=== PATIENT | male | born 1980 | race Caucasian/White ===

== ENCOUNTER 2018-10-15 12:34 | Emergency (ER) | payer OTHER ==
[2018-10-15 12:38] VITALS: TEMP 97.8
[2018-10-15] MEDS ORDERED: SODIUM CHLORIDE 0.9% 1,000 ML IV ONE (12:58)
--- NOTE | 2018-10-15 13:04 | ED ---
General Adult HPI - General Chief complaint: Dizziness Stated complaint: hypertension, low pulse Time Seen by Provider: 10/15/18 12:35 Source: patient, RN notes reviewed Mode of arrival: ambulatory Limitations: no limitations - History of Present Illness Initial comments: This is a 37-year-old male who presents emergency Department complaining of having had a syncopal episode on . Patient states he went to his primary medical care doctor's office and they told to come the emergency department because his heart rate was slow on an EKG and his blood pressure is high. Patient states the symptoms of lightheadedness and passing out or been on going for about 5 years he's passed out a total of 4-5 times. Patient states he's never followed up except for his initial visit to an emergency department 5 years ago. Patient states she can feel lightheaded prior to passing out but denies chest pain palpitations shortness of breath or difficulty breathing. Patient denies any recent fever chills or cough. Patient also complains of severe fatigue which has gotten considerably worse over the last 2 weeks such that is missing quite a few days at work. Patient denies any headache patient denies any numbness or focal weakness. Patient denies any abdominal pain patient denies nausea vomiting diarrhea. Patient states anytime he stands up he feels extremely lightheaded. - Related Data Home Medications Medication Instructions Recorded Confirmed Amoxic-Pot Clav 875-125Mg 1 tab PO Q12H 10/15/18 10/15/18 [Augmentin 875-125] Cyanocobalamin (Vitamin B-12) 2,500 mcg PO DAILY 10/15/18 10/15/18 [Vitamin B-12] Famotidine [Pepcid] 20 mg PO DAILY 10/15/18 10/15/18 Fluticasone Nasal [place] [Flonase 2 sprays EA NOSTRIL DAILY 10/15/18 10/15/18 Nasal [place]] Loratadine [Claritin] 10 mg PO DAILY 10/15/18 10/15/18 Meclizine [Antivert] 25 mg PO DIRECTED 10/15/18 10/15/18 Allergies Allergy/AdvReac Type Severity Reaction Status Date / Time banana [Banana] Allergy Anaphylaxis Verified 10/15/18 12:50 iodine Allergy Rash/Hives Verified 10/15/18 12:50 STEROID AdvReac Confusion Uncoded 10/15/18 12:50 Review of Systems ROS Statement: Those systems with pertinent positive or pertinent negative responses have been documented in the HPI. ROS Other: All systems not noted in ROS Statement are negative. Past Medical History Past Medical History: No Reported History Additional Past Medical History / Comment(s): vertigo History of Any Multi-Drug Resistant Organisms: None Reported Past Surgical History: Orthopedic Surgery Additional Past Surgical History / Comment(s): reconstruction on bilateral biceps, left ACL Past Psychological History: ADD/ADHD, Depression Smoking Status: Current every day smoker Past Alcohol Use History: None Reported Past Drug Use History: Marijuana General Exam - General Exam Comments Initial Comments: GENERAL: Patient is well-developed and well-nourished. Patient is nontoxic and well- hydrated and is in mild distress. ENT: Neck is soft and supple. No significant lymphadenopathy is noted. Oropharynx is clear. Moist mucous membranes. Neck has full range of motion without eliciting any pain. EYES: The sclera were anicteric and conjunctiva were pink and moist. Extraocular movements were intact and pupils were equal round and reactive to light. Eyelids were unremarkable. PULMONARY: Unlabored respirations. Good breath sounds bilaterally. No audible rales rhonchi or wheezing was noted. CARDIOVASCULAR: There is a regular rate and rhythm without any murmurs gallops or rubs. ABDOMEN: Soft and nontender with normal bowel sounds. No palpable organomegaly was noted. There is no palpable pulsatile mass. SKIN: Skin is clear with no lesions or rashes and otherwise unremarkable. NEUROLOGIC: Patient is alert and oriented x3. Cranial nerves II through XII are grossly intact. Motor and sensory are also intact. Normal speech, volume and content. Symmetrical smile. MUSCULOSKELETAL: Normal extremities with adequate strength and full range of motion. No lower extremity swelling or edema. No calf tenderness. LYMPHATICS: No significant lymphadenopathy is noted PSYCHIATRIC: Normal psychiatric evaluation. Limitations: no limitations Course Vital Signs 10/15/18 10/15/18 10/15/18 12:35 13:17 14:47 Temperature 97.8 F Pulse Rate 67 51 L Pulse Rate [ 77 Feather Mixer ] Respiratory 18 16 16 Rate Blood Pressure 152/94 136/93 Blood Pressure 133/100 [Prone] Blood Pressure 143/101 [Sitting] Blood Pressure 139/98 [Standing] O2 Sat by Pulse 99 98 Oximetry Medical Decision Making - Medical Decision Making EKG shows normal sinus rhythm at 61 bpm LA interval is 146 dresses 92 QT interval 382 QTC is 384. Patient's EKG shows no ST segment elevation or depression or T wave abnormalities are noted. Patient had no symptoms while in the emergency department. Patient was not orthostatic in the emergency department. Patient agreed to follow up with his primary medical care doctor. - Lab Data Result diagrams: 10/15/18 13:10 10/15/18 13:10 Lab Results 10/15/18 10/15/18 10/15/18 Range/Units 13:10 13:10 13:10 WBC 4.7 (3.8-10.6) k/uL RBC 4.90 (4.30-5.90) m/uL Hgb 14.5 (13.0-17.5) gm/dL Hct 42.2 (39.0-53.0) % MCV 86.1 (80.0-100.0) fL MCH 29.7 (25.0-35.0) pg MCHC 34.5 (31.0-37.0) g/dL RDW 13.0 (11.5-15.5) % Plt Count 230 (150-450) k/uL Neutrophils % 58 % Lymphocytes % 25 % Monocytes % 5 % Eosinophils % 7 % Basophils % 1 % Neutrophils # 2.7 (1.3-7.7) k/uL Lymphocytes # 1.2 (1.0-4.8) k/uL Monocytes # 0.2 (0-1.0) k/uL Eosinophils # 0.3 (0-0.7) k/uL Basophils # 0.1 (0-0.2) k/uL PT 10.1 (9.0-12.0) sec INR 0.9 (<1.2) APTT 23.8 (22.0-30.0) sec Sodium 143 (137-145) mmol/L Potassium 4.6 (3.5-5.1) mmol/L Chloride 107 (98-107) mmol/L Carbon Dioxide 27 (22-30) mmol/L Anion Gap 9 mmol/L BUN 15 (9-20) mg/dL Creatinine 0.90 (0.66-1.25) mg/dL Est GFR (CKD-EPI)AfAm >90 (>60 ml/min/1.73 sqM) Est GFR (CKD-EPI)NonAf >90 (>60 ml/min/1.73 sqM) Glucose 83 (74-99) mg/dL Calcium 9.1 (8.4-10.2) mg/dL Magnesium 1.9 (1.6-2.3) mg/dL Total Bilirubin 0.4 (0.2-1.3) mg/dL AST 25 (17-59) U/L ALT 42 (21-72) U/L Alkaline Phosphatase 41 (38-126) U/L Troponin I (0.000-0.034) ng/mL Total Protein 7.3 (6.3-8.2) g/dL Albumin 4.3 (3.5-5.0) g/dL TSH 1.290 (0.465-4.680) mIU/L Free T4 0.87 (0.78-2.19) ng/dL Urine Opiates Screen (NotDetected) Ur Oxycodone Screen (NotDetected) Urine Methadone Screen (NotDetected) Ur Propoxyphene Screen (NotDetected) Ur Barbiturates Screen (NotDetected) U Tricyclic Antidepress (NotDetected) Ur Phencyclidine Scrn (NotDetected) Ur Amphetamines Screen (NotDetected) U Methamphetamines Scrn (NotDetected) U Benzodiazepines Scrn (NotDetected) Urine Cocaine Screen (NotDetected) U Marijuana (THC) Screen (NotDetected) 10/15/18 10/15/18 Range/Units 13:10 14:22 WBC (3.8-10.6) k/uL RBC (4.30-5.90) m/uL Hgb (13.0-17.5) gm/dL Hct (39.0-53.0) % MCV (80.0-100.0) fL MCH (25.0-35.0) pg MCHC (31.0-37.0) g/dL RDW (11.5-15.5) % Plt Count (150-450) k/uL Neutrophils % % Lymphocytes % % Monocytes % % Eosinophils % % Basophils % % Neutrophils # (1.3-7.7) k/uL Lymphocytes # (1.0-4.8) k/uL Monocytes # (0-1.0) k/uL Eosinophils # (0-0.7) k/uL Basophils # (0-0.2) k/uL PT (9.0-12.0) sec INR (<1.2) APTT (22.0-30.0) sec Sodium (137-145) mmol/L Potassium (3.5-5.1) mmol/L Chloride (98-107) mmol/L Carbon Dioxide (22-30) mmol/L Anion Gap mmol/L BUN (9-20) mg/dL Creatinine (0.66-1.25) mg/dL Est GFR (CKD-EPI)AfAm (>60 ml/min/1.73 sqM) Est GFR (CKD-EPI)NonAf (>60 ml/min/1.73 sqM) Glucose (74-99) mg/dL Calcium (8.4-10.2) mg/dL Magnesium (1.6-2.3) mg/dL Total Bilirubin (0.2-1.3) mg/dL AST (17-59) U/L ALT (21-72) U/L Alkaline Phosphatase (38-126) U/L Troponin I <0.012 (0.000-0.034) ng/mL Total Protein (6.3-8.2) g/dL Albumin (3.5-5.0) g/dL TSH (0.465-4.680) mIU/L Free T4 (0.78-2.19) ng/dL Urine Opiates Screen Not Detected (NotDetected) Ur Oxycodone Screen Not Detected (NotDetected) Urine Methadone Screen Not Detected (NotDetected) Ur Propoxyphene Screen Not Detected (NotDetected) Ur Barbiturates Screen Not Detected (NotDetected) U Tricyclic Antidepress Not Detected (NotDetected) Ur Phencyclidine Scrn Not Detected (NotDetected) Ur Amphetamines Screen Not Detected (NotDetected) U Methamphetamines Scrn Not Detected (NotDetected) U Benzodiazepines Scrn Not Detected (NotDetected) Urine Cocaine Screen Not Detected (NotDetected) U Marijuana (THC) Screen Detected H (NotDetected) Disposition Clinical Impression: Syncope Disposition: HOME SELF-CARE Condition: Good Instructions (If sedation given, give patient instructions): Syncope (ED) Additional Instructions: Patient should follow-up with his primary medical care doctor as well as cardiology. Is patient prescribed a controlled substance at d/c from ED?: No Referrals: Jas Marshall DO [Primary Care Provider] - 1-2 days Time of Disposition: 15:09
[2018-10-15 13:19] VITALS: RESP 16
[2018-10-15 13:38] LABS: Basophils # (A) 0.1 k/uL (0-0.2); Basophils % (A) 1 %; Eosinophils # (A) 0.3 k/uL (0-0.7); Eosinophils % (A) 7 %; HCT 42.2 % (39.0-53.0); HGB 14.5 gm/dL (13.0-17.5); Lymphocytes # (A) 1.2 k/uL (1.0-4.8); Lymphocytes % (A) 25 %; MCH 29.7 pg (25.0-35.0); MCHC 34.5 g/dL (31.0-37.0); MCV 86.1 fL (80.0-100.0); Mean Platelet Volume 6.8; Monocytes # (A) 0.2 k/uL (0-1.0); Monocytes % (A) 5 %; Neutrophils # (A) 2.7 k/uL (1.3-7.7); Neutrophils % (A) 58 %; Platelet Count 230 k/uL (150-450); WBC 4.7 k/uL (3.8-10.6)
--- NOTE | 2018-10-15 13:41 | XR ---
EXAMINATION TYPE: XR chest 2V DATE OF EXAM: 10/15/2018 COMPARISON: 11/12/2013 INDICATION: Pain TECHNIQUE: Frontal and lateral views of the chest are obtained. FINDINGS: The heart size is normal. The pulmonary vasculature is normal. The lungs are clear. IMPRESSION: 1. No acute pulmonary process.
[2018-10-15 13:47] LABS: INR 0.9 (<1.2); Partial Thromboplastin Time 23.8 sec (22.0-30.0); Prothrombin Time 10.1 sec (9.0-12.0)
[2018-10-15 13:48] LABS: ALT 42 U/L (21-72); AST 25 U/L (17-59); African American GFR (CKD) >90 (>60 ml/min/1.73 sqM); Albumin 4.3 g/dL (3.5-5.0); Alkaline Phosphatase 41 U/L (38-126); Anion Gap 9 mmol/L; Blood Urea Nitrogen 15 mg/dL (9-20); Calcium 9.1 mg/dL (8.4-10.2); Carbon Dioxide 27 mmol/L (22-30); Chloride 107 mmol/L (98-107); Glucose 83 mg/dL (74-99); Magnesium 1.9 mg/dL (1.6-2.3); Potassium 4.6 mmol/L (3.5-5.1); Sodium 143 mmol/L (137-145); Total Bilirubin 0.4 mg/dL (0.2-1.3); Total Protein 7.3 g/dL (6.3-8.2)
[2018-10-15 14:05] LABS: T4, Free (Free Thyroxine) 0.87 ng/dL (0.78-2.19)
[2018-10-15 14:47] LABS: Amphetamine Screen,Urine Not Detected (NotDetected); Barbiturate Screen,Urine Not Detected (NotDetected); Benzodiazepines Screen,Urine Not Detected (NotDetected); Cocaine Screen,Urine Not Detected (NotDetected); Methadone Screen, Urine Not Detected (NotDetected); Opiate Screen,Urine Not Detected (NotDetected); Oxycodone Screen, Urine Not Detected (NotDetected); Phencyclidine Screen,Urine Not Detected (NotDetected); Tricyclic Antidepressant,Urine Not Detected (NotDetected); Urn Cannabinoid Scrn Detected (NotDetected)
[2018-10-15 14:48] VITALS: BP 136/93; PULSE 51
== END 2018-10-15 15:37 | disposition home or self-care (01) ==
LOC: EC 12:34
DX: R55 Syncope and collapse (principal); R42 Dizziness and giddiness; F17.200 Nicotine dependence, unspecified, uncomplicated; Z79.899 Other long term (current) drug therapy; Z91.048 Other nonmedicinal substance allergy status; Z88.8 Allergy status to other drugs, medicaments and biological substances; Z91.018 Allergy to other foods
CPT/HCPCS: 36415; 71046; 80053; 80306; 83735; 84439; 84443; 84484; 85025; 85610; 85730; 93005; 96360; 99284

== ENCOUNTER → 2019-01-06 | Outpatient (CLI) | payer OTHER ==
--- NOTE | 2019-01-06 11:32 | US ---
EXAMINATION TYPE: US abdomen limited DATE OF EXAM: 01/06/2019 COMPARISON: NONE CLINICAL HISTORY: Epigastric Pain R10.13. Generalized abdominal pain, nausea, diarrhea, dizziness EXAM MEASUREMENTS: Liver Length: 14.5 cm Gallbladder Wall: 0.2 cm CBD: 0.4 cm Right Kidney: 11.2 x 5.4 x 4.4 cm Pancreas: wnl Liver: mildly hyperechoic mid right lobe Gallbladder: wnl Evidence for sonographic Cyr's sign: no CBD: wnl Right Kidney: wnl Visualized pancreas is unremarkable. Visualized liver is slightly heterogeneous without mass or ducta l dilatation. Gallbladder within normal limits. No gross hydronephrosis in right kidney. IMPRESSION: No shadowing mobile gallstones or ultrasound evidence for acute cholecystitis.
== END | disposition home or self-care (01) ==
LOC: RADUSWWP 09:33
PROVIDERS: ATTEND Internal Medicine Gastroenterology
DX: R10.13 Epigastric pain (principal)
CPT/HCPCS: 76705

== ENCOUNTER 2019-01-12 13:36 | Day surgery (SDC) | payer OTHER ==
[2019-01-10 15:58] VITALS: BMI 29.0
[~2019-01-12 13:36] MED LIST: LACTATED RINGERS 1,000 ML IV SCH
[2019-01-12] MEDS ORDERED: LIDOCAINE 1% 20 ML VIAL (10MG/ML) FOR IV START INTRADERMA ONE (14:00)
[2019-01-12 14:01] VITALS: RESP 16; TEMP 98.7
[2019-01-12] MEDS ORDERED: ONDANSETRON 4 MG/2 ML VIAL ONE (14:42)
[2019-01-12] MEDS ORDERED: PROPOFOL 10 MG/ML 20 ML VIAL IV ONE (14:42)
[2019-01-12] MEDS ORDERED: fentaNYL (PF) 50 MCG/ML 2 ML AMP ONE (14:42)
[2019-01-12] MEDS ORDERED: LIDOCAINE 1% INJ 10MG/ML (20 ML MDV) ONE (14:42)
[2019-01-12] MEDS ORDERED: IV FLUID CONTINUATION 1,000 ML IV ONE (15:21)
--- NOTE | 2019-01-12 15:29 | P.PCN ---
Date of Procedure: 01/12/19 Description of Procedure: Brief history: Patient is a pleasant scheduled for an elective upper endoscopy as well as colonoscopy as a part of evaluation of evaluation of epigastric abdominal pain and change in bowel habits. Patient has long-standing history of GERD type symptoms currently on Protonix daily. He also has diffuse generalized abdominal pain in the lower abdomen with chronic loose bowel movements. Procedure performed: Esophagogastroduodenoscopy with biopsy Colonoscopy with biopsy Estimated blood loss: Minimal. Preoperative diagnosis: Epigastric abdominal pain, change in bowel habits Anesthesia: MAC Procedure: After informed consent was obtained from the patient was brought into the endoscopy unit and IV sedation was administered by anesthesia under continuous monitoring. Initially upper endoscopy was done. The Olympus GF 190 video endoscope was inserted into the mouth and esophagus intubated without any difficulty and was gradually advanced into the stomach and duodenum and carefully examined. The bulb and second part of the duodenum appeared normal, with biopsies taken to rule out celiac sprue. The scope was then withdrawn into the stomach adequately insufflated with air and upon careful examination the antrum and body, cardia and fundus appeared normal, except for some mild scattered erythema in the antrum and body suggestive of mild gastritis with biopsies taken to rule out Helicobacter pylori infection. The scope was then withdrawn into the esophagus. The GE junction was located at 38 cm to the incisors, with biopsies taken to rule out evidence of reflux esophagitis. It appeared regular with no erythema erosions or ulcerations. Rest of the esophagus appeared normal. Patient tolerated the procedure well. At this time the patient continued to remain sedation. Initial digital rectal examination was normal. Olympus CF 190 video colonoscope was then inserted into the rectum and gradually advanced to the cecum without any difficulty. Careful examination was performed as the scope was gradually being withdrawn. The prep was excellent. The cecum, ascending colon, transverse colon, descending colon, sigmoid colon and rectum appeared normal, with biopsies of the right and left colon taken due to altered bowel function. Terminal ileum was also intubated and appeared normal with biopsies taken due to altered bowel function. Retroflexion was performed in the rectum and no lesions were noted. Patient tolerated the procedure well. Impression: 1. Mild gastritis antrum and body biopsied. Biopsies of the GE junction and duodenum. 2. Normal-appearing colon from rectum to cecum with normal-appearing terminal ileum and biopsies taken of the right colon, left colon and terminal ileum due to altered bowel function. Recommendations: Findings of this examination were discussed with the patient as well as his fa anmol. Okay to resume diet. Okay to resume medications. Follow-up in gastroenterology clinic as scheduled for results of biopsy results.
[2019-01-12 15:38] VITALS: BP 113/72; PULSE 71
== END 2019-01-12 15:54 | disposition home or self-care (01) ==
LOC: ORWHC2ENDO 13:36
PROVIDERS: ATTEND Internal Medicine
DX: K29.50 Unspecified chronic gastritis without bleeding (principal); K21.0 Gastro-esophageal reflux disease with esophagitis; R19.4 Change in bowel habit; Z87.891 Personal history of nicotine dependence; Z91.018 Allergy to other foods; Z91.048 Other nonmedicinal substance allergy status; Z88.8 Allergy status to other drugs, medicaments and biological substances; Z79.899 Other long term (current) drug therapy; Z79.1 Long term (current) use of non-steroidal anti-inflammatories (NSAID); Z98.890 Other specified postprocedural states
CPT/HCPCS: 88305; 45380; 43239; J2405; J2001; J3010; J2704

== ENCOUNTER → 2020-07-23 | Outpatient (CLI) | payer OTHER ==
--- NOTE | 2020-07-23 16:42 | XR ---
EXAMINATION TYPE: XR toes RT DATE OF EXAM: 07/23/2020 COMPARISON: NONE HISTORY: Pain TECHNIQUE: 2 view submitted FINDINGS: There is no oblique fracture through the midshaft proximal phalanx second digit. Remaining osseous structures intact. IMPRESSION: Oblique fracture mildly displaced proximal phalanx second digit.
== END | disposition home or self-care (01) ==
LOC: RADXRYALE 15:20
PROVIDERS: ATTEND Physician Assistant
DX: S62.616A Displaced fracture of proximal phalanx of right little finger, initial encounter for closed fracture (principal)

== ENCOUNTER → 2020-11-05 | Outpatient (CLI) | payer OTHER ==
--- NOTE | 2020-11-05 11:09 | XR ---
Left humerus HISTORY: Left upper arm pain 2 views left humerus There are ossific densities present at the level of the proximal radius, some osteoarthritic changes are present within the left elbow, there may be synovial osteochondromatosis or heterotopic new bone formation, suspect there changes of biceps tendon repair, metallic clip present at the level of the r adial tuberosity with an associated lucency. There is some focal soft tissue swelling suspected. No a cute fracture or dislocation. IMPRESSION: Correlate for possible biceps tendon rupture, MRI may be of benefit.
== END | disposition home or self-care (01) ==
LOC: RADXRYALE 08:36
PROVIDERS: ATTEND Family Medicine
DX: M79.622 Pain in left upper arm (principal)

== ENCOUNTER 2020-11-14 15:20 | Observation (INO) | payer OTHER ==
[2020-11-14] MEDS ORDERED: AMPICILLIN-SULBACTAM 3 GM in SODIUM CHLORIDE 0.9% 100 ML IVPB STA (15:40)
[2020-11-14 16:29] LABS: Basophils % (A) 0 %; Eosinophils % (A) 0 %; HCT 39.6 % (39.0-53.0); HGB 13.3 gm/dL (13.0-17.5); Lymphocytes # (A) 2.2 k/uL (1.0-4.8); Lymphocytes % (A) 25 %; MCH 30.3 pg (25.0-35.0); MCHC 33.6 g/dL (31.0-37.0); MCV 90.2 fL (80.0-100.0); Mean Platelet Volume 7.5; Monocytes # (A) 0.5 k/uL (0-1.0); Monocytes % (A) 6 %; Neutrophils # (A) 5.6 k/uL (1.3-7.7); Neutrophils % (A) 65 %; Platelet Count 282 k/uL (150-450); RDW 12.9 % (11.5-15.5); WBC 8.6 k/uL (3.8-10.6)
[2020-11-14] MEDS ORDERED: NALOXONE 0.4 MG/ML 1 ML VIAL IV PRN (16:31)
--- NOTE | 2020-11-14 16:32 | ED ---
Skin/Abscess/FB HPI - General Chief complaint: Skin/Abscess/Foreign Body Stated complaint: multiple arm masses & arm swelling Source: patient, family Mode of arrival: ambulatory - History of Present Illness Initial comments: Sam a 9-year-old male presents the emergency department today from Dr. Zhu's office for evaluation of swelling in the left arm. Patient was seen last week and placed on oral antibiotics he's been compliant with his 4 times daily Keflex. Despite compliance with this he's developed worsening swelling and tender lymphadenopathy in the left axilla. Patient was again seen in the office today and advised him to the hospital for ultrasound blood cultures and IV antibiotics. Patient denies any fevers chills nausea or vomiting. He states he doesn't feel good in the arm is quite painful. Of note the patient does own a cat but does not believe it has bitten or scratched him recently. - Related Data Home Medications Medication Instructions Recorded Confirmed Montelukast [Singulair] 10 mg PO HS 01/10/19 11/14/20 Omeprazole 40 mg PO DAILY 01/10/19 11/14/20 Acetaminophen [Tylenol Extra 500 mg PO Q8H PRN 11/14/20 11/14/20 Strength] Albuterol Sulfate [Proair Hfa] 2 puff INHALATION RT-Q6H PRN 11/14/20 11/14/20 Benralizumab [Fasenra] 30 mg SQ Q56D 11/14/20 11/14/20 Cephalexin [Keflex] 500 mg PO TID 11/14/20 11/14/20 Citalopram Hydrobromide [CeleXA] 20 mg PO DAILY 11/14/20 11/14/20 Divalproex ER [Depakote ER] 500 mg PO HS 11/14/20 11/14/20 Fexofenadine HCl [Alysha Allergy] 180 mg PO DAILY 11/14/20 11/14/20 Fluticasone Nasal [place] [Flonase 1 spray EA NOSTRIL DAILY PRN 11/14/20 11/14/20 Nasal [place]] Fluticasone Propionate [Flovent 2 puff INHALATION RT-BID 11/14/20 11/14/20 Hfa 220 mcg] Ipratropium [place] [Ipratropium 1 spray EA NOSTRIL DAILY 11/14/20 11/14/20 [place] 0.03%] Ketorolac [Toradol] 10 mg PO BID PRN 11/14/20 11/14/20 QUEtiapine FUMARATE [SEROquel XR] 50 mg PO DAILY 11/14/20 11/14/20 QUEtiapine FUMARATE [SEROquel XR] 400 mg PO HS 11/14/20 11/14/20 diphenhydrAMINE HCL [Benadryl] 50 mg PO HS 11/14/20 11/14/20 Allergies Allergy/AdvReac Type Severity Reaction Status Date / Time banana [Banana] Allergy Anaphylaxis Verified 11/14/20 17:12 ibuprofen Allergy Unknown Verified 11/14/20 17:12 iodine Allergy Rash/Hives Verified 11/14/20 17:12 walnut Allergy shallow Verified 11/14/20 17:12 breathing and itching throat STEROID AdvReac swelling,an Uncoded 11/14/20 17:12 michael,itching ,nausea Review of Systems ROS Statement: Those systems with pertinent positive or pertinent negative responses have been documented in the HPI. ROS Other: All systems not noted in ROS Statement are negative. Past Medical History Past Medical History: GERD/Reflux, Hypertension Additional Past Medical History / Comment(s): vertigo, migraines, current sinus infection and on rx, had abnormal EEG, occ irregular heat beat, irregular bowel movements, abdominal pain and cramping, History of Any Multi-Drug Resistant Organisms: None Reported Past Surgical History: Heart Catheterization, Orthopedic Surgery Additional Past Surgical History / Comment(s): reconstruction on bilateral biceps, left knee ACL Past Anesthesia/Blood Transfusion Reactions: Unable to Obtain, Motion Sickness Additional Past Anesthesia/Blood Transfusion Reaction / Comment(s): unknown family hx- adopted Past Psychological History: Anxiety Smoking Status: Never smoker Past Alcohol Use History: None Reported Past Drug Use History: Marijuana - Past Family History Mother Family Medical History: Unable to Obtain Additional Family Medical History / Comment(s): obtained General Exam - General Exam Comments Initial Comments: Physical Exam GENERAL: Patient is well-developed and well-nourished. Patient is nontoxic and well-hydrated and is in no distress. HENT: Normocephalic, Atraumatic. EYES: PERRL, EOMI PULMONARY: Unlabored respirations. CARDIOVASCULAR: RRR Warm and well perfused extremities ABDOMEN: Non-distended SKIN: Swollen area distal left bicep, no fluctuate Tender lymphadenopathy in left axilla : Deferred NEUROLOGIC: Alert and oriented Normal speech Normal gait MUSCULOSKELETAL: Moving all extremities with no apparent injury PSYCHIATRIC: No SI/HI Course Vital Signs 11/14/20 11/14/20 15:21 22:46 Temperature 98.5 F Pulse Rate 78 72 Respiratory 19 18 Rate Blood Pressure 178/106 137/88 O2 Sat by Pulse 97 95 Oximetry Medical Decision Making - Medical Decision Making Pt care discussed with Audra Labs and IV abx ordered Patient care discussed with Luisa RUST who accepts admission to [facility] Ultrasound no signs of abscess, lymphadenopathy noted - Lab Data Result diagrams: 11/14/20 16:17 11/14/20 16:17 Lab Results 11/14/20 11/14/20 11/14/20 Range/Units 16:17 16:17 16:30 WBC 8.6 (3.8-10.6) k/uL RBC 4.40 (4.30-5.90) m/uL Hgb 13.3 (13.0-17.5) gm/dL Hct 39.6 (39.0-53.0) % MCV 90.2 (80.0-100.0) fL MCH 30.3 (25.0-35.0) pg MCHC 33.6 (31.0-37.0) g/dL RDW 12.9 (11.5-15.5) % Plt Count 282 (150-450) k/uL MPV 7.5 Neutrophils % 65 % Lymphocytes % 25 % Monocytes % 6 % Eosinophils % 0 % Basophils % 0 % Neutrophils # 5.6 (1.3-7.7) k/uL Lymphocytes # 2.2 (1.0-4.8) k/uL Monocytes # 0.5 (0-1.0) k/uL Eosinophils # 0.0 (0-0.7) k/uL Basophils # 0.0 (0-0.2) k/uL Sodium 140 (137-145) mmol/L Potassium 4.6 (3.5-5.1) mmol/L Chloride 105 (98-107) mmol/L Carbon Dioxide 26 (22-30) mmol/L Anion Gap 9 mmol/L BUN 12 (9-20) mg/dL Creatinine 1.02 (0.66-1.25) mg/dL Est GFR (CKD-EPI)AfAm >90 (>60 ml/min/1.73 sqM) Est GFR (CKD-EPI)NonAf >90 (>60 ml/min/1.73 sqM) Glucose 93 (74-99) mg/dL Calcium 9.3 (8.4-10.2) mg/dL Total Bilirubin 0.4 (0.2-1.3) mg/dL AST 31 (17-59) U/L ALT 25 (4-49) U/L Alkaline Phosphatase 101 (38-126) U/L Total Protein 7.9 (6.3-8.2) g/dL Albumin 4.2 (3.5-5.0) g/dL Coronavirus (PCR) Not Detected (Not Detectd) Disposition Clinical Impression: Lymphadenopathy, axillary Disposition: ADMITTED IP TO THIS HOSP Condition: Stable Is patient prescribed a controlled substance at d/c from ED?: No
[2020-11-14 16:39] LABS: ALT 25 U/L (4-49); AST 31 U/L (17-59); African American GFR (CKD) >90 (>60 ml/min/1.73 sqM); Albumin 4.2 g/dL (3.5-5.0); Alkaline Phosphatase 101 U/L (38-126); Anion Gap 9 mmol/L; Blood Urea Nitrogen 12 mg/dL (9-20); Calcium 9.3 mg/dL (8.4-10.2); Carbon Dioxide 26 mmol/L (22-30); Chloride 105 mmol/L (98-107); Glucose 93 mg/dL (74-99); Non-African American GFR(CKD) >90 (>60 ml/min/1.73 sqM); Potassium 4.6 mmol/L (3.5-5.1); Sodium 140 mmol/L (137-145); Total Bilirubin 0.4 mg/dL (0.2-1.3); Total Protein 7.9 g/dL (6.3-8.2)
--- NOTE | 2020-11-14 18:10 | US ---
EXAMINATION TYPE: US extremity nonvasc mass LT DATE OF EXAM: 11/14/2020 COMPARISON: NONE CLINICAL HISTORY: left axilla and distal bicep masses - lymph vs abs. left axilla palpables. left med ial upper arm palpable near antecubital fossa. pain left lower arm FINDINGS: Multiple lymph nodes left axilla with largest = 3.5 x 1.5 x 2.8 which demonstrates a thick cortex. 2.2 x 1.8 x 1.5 cm lymph node in the left axillary region with a thick cortex. Lymph node left medial upper arm = 1.9cm. No sonographic abnormality visualized within patients area of pain left lower arm IMPRESSION: 1. Abnormal-appearing left axillary lymph nodes, differential diagnosis includes infection, inflammat ion or malignancy. 2. No sonographic abnormality identified in the patient's area of pain in the left lower arm. 1.9 cm lymph node seen in the proximal medial left arm.
[2020-11-14] MEDS ORDERED: FLUTICASONE 50MCG/SPRAY NASAL 16GM EA NOSTRIL PRN (18:15)
[2020-11-14] MEDS ORDERED: ETODOLAC 300 MG CAPSULE PO PRN (18:15)
[2020-11-14] MEDS ORDERED: ACETAMINOPHEN TAB 500 MG TAB PO PRN (18:15)
[2020-11-14] MEDS ORDERED: ALBUTEROL NEBULIZED 2.5 MG/3 ML INHALATION PRN (18:15)
--- NOTE | 2020-11-14 18:54 | HP ---
HISTORY AND PHYSICAL DATE OF SERVICE: 11/14/2020 CHIEF COMPLAINTS: Pain and swelling of the left lower forearm. HISTORY OF PRESENT ILLNESS: This 39-year-old gentleman with a past medical history of GERD, hypertension, history of vertigo, migraine, sinus infection, abnormal EEG, irregular bowel movements and cardiac catheterization, also had bilateral bicipital tendon fractures and reconstruction. Currently the patient has noticed swelling in the left lower part for the last 2 weeks and the patient was recently seen by Dr. Londono in the office. Oral antibiotics were initiated in the form of Keflex. Because of lack of improvement, the patient came to [facility] and was admitted for further evaluation and treatment. White counts are normal. Ultrasound was done on the left upper extremity which showed abnormal-appearing left axillary lymph nodes. A 1.9 cm lymph node was also noted in the proximal medial left arm. The patient was admitted for further evaluation and treatment. There is no history of any fever, rigors or chills. No history of headache, loss of consciousness, seizures at this time. PAST MEDICAL HISTORY: History of GERD, hypertension, history of vertigo, history of cardiac catheterization, history of anxiety. MEDICATIONS: Medications prior to admission include Seroquel, Singulair, Toradol, fluticasone, Depakote, ProAir, Tylenol, Alysha, Seroquel, omeprazole, Combivent, Flovent, Celexa and Keflex. Naloxone. ALLERGIES: ALLERGIES are BANANA, IBUPROFEN, IODINE, WALNUTS and STEROIDS. FAMILY HISTORY: Unable to obtain. SOCIAL HISTORY: Previous history of smoking. Occasional THC. REVIEW OF SYSTEMS: ENT: No diminished hearing. No diminished vision. CARDIOVASCULAR SYSTEM: No angina, palpitations. RESPIRATORY SYSTEM: No cough, hemoptysis. GI: As mentioned earlier. : No dysuria. NERVOUS SYSTEM: No numbness, weakness. ALLERGY/IMMUNOLOGY: No asthma or hay fever. MUSCULOSKELETAL: As mentioned earlier. HEMATOLOGY/ONCOLOGY: No history of anemia. ENDOCRINE: No history of diabetes or hypothyroidism. CONSTITUTIONAL: As mentioned earlier. DERMATOLOGY: Negative. RHEUMATOLOGY: Negative. PSYCHIATRY: As mentioned earlier. PHYSICAL EXAMINATION: Patient alert and oriented x3. Pulse 78, blood pressure 178/106, respiration 19, temperature 98.2, pulse ox 97% on room air. HEENT: Conjunctivae normal. NECK: No jugular venous distention. CARDIOVASCULAR: S1, S2 muffled. RESPIRATION: Breath sounds diminished at the bases. No rhonchi. No crackles. ABDOMEN: Soft, nontender. NERVOUS SYSTEM: No focal deficit. EXAMINATION OF THE LEFT ARM: Tender. Swelling in the left supracondylar area present and axillary lymphadenopathy also present. No rash appreciated. No infection appreciated. SKIN: As mentioned earlier. JOINTS: No active deforming arthropathy. LABS: CBC within normal limits. BMP within normal limits. ASSESSMENT: 1. Left lower forearm swelling, possible lymphadenopathy with axillary lymphadenopathy. Rule out abscess. 2. History of gastroesophageal reflux disease. 3. Hypertension. 4. History of vertigo. 5. Migraine. 6. Sinus infection. 7. History of abnormal EKG. 8. History of cardiac catheterization. 9. History of reconstruction of the bilateral bicipital tendons which were ruptured. 10.Left knee ACL. 11.History of anxiety. 12.Obesity with body mass index 31.9. 13.FULL CODE. RECOMMENDATIONS AND DISCUSSION: In this 39-year-old gentleman who presented with multiple complex medical issues, we will monitor the patient closely, continue the current medications, continue symptomatic treatment. Otherwise at this time I recommend infectious disease evaluation. The patient was also started on IV Unasyn. Will continue to monitor. Prognosis guarded. Further recommendations to follow. A copy of this dictation is being forwarded to Dr. Marshall, who is the primary physician. We will consult Dr. Londono also. [id number] / ISSACN: [id number] / MTDD
[2020-11-14] MEDS ORDERED: QUEtiapine 200 MG TAB PO SCH (21:00)
[2020-11-14] MEDS: FLUTICASONE 110 MCG INHALER INHALATION SCH (23:59)
[2020-11-15] MEDS: MONTELUKAST 10 MG TAB PO SCH (01:40)
[2020-11-15] MEDS: diphenhydrAMINE 25 MG CAP PO SCH ×2 (01:53→20:29)
[2020-11-15] MEDS: QUEtiapine 400 MG TAB PO SCH ×2 (01:54→20:29)
[2020-11-15] MEDS: DIVALPROEX ER 500 MG TAB.ER.24H PO SCH ×2 (02:00→20:29)
[2020-11-15] MEDS: FLUTICASONE 110 MCG INHALER INHALATION SCH ×2 (07:42→21:52)
[2020-11-15] MEDS: LORATADINE 10 MG TAB PO SCH (07:50)
[2020-11-15] MEDS: CITALOPRAM HYDROBROMIDE 20 MG TAB PO SCH (07:50)
[2020-11-15] MEDS: PANTOPRAZOLE 40 MG TABLET PO SCH (07:50)
[2020-11-15] MEDS: QUEtiapine 50 MG TAB PO SCH (07:50)
[2020-11-15] MEDS ORDERED: QUEtiapine 25 MG TAB PO SCH (09:00)
[2020-11-15] MEDS ORDERED: IPRATROPIUM BROMIDE 0.06% NASAL SPRAY (15 ML) EA NOSTRIL SCH (09:00)
--- NOTE | 2020-11-15 11:04 | P.GSCN ---
History of Present Illness Consult date: 11/15/20 Reason for Consult: (Lymphadenopathy History of present illness: The 39-year-old male who was seen in my office yesterday. Patient has had a t wo-week history of left arm lymphadenopathy. Patient had a large inflamed lymph node in his left proximal arm. He is sent to the emergency room for possible IV antibiotics. His minute overnight. Patient received IV antibiotic overnight. The erythema of his left arm has improved significantly. Patient states he feels better. Past Medical History Past Medical History: GERD/Reflux, Hypertension Additional Past Medical History / Comment(s): vertigo, migraines, current sinus infection and on rx, had abnormal EEG, occ irregular heat beat, irregular bowel movements, abdominal pain and cramping, History of Any Multi-Drug Resistant Organisms: None Reported Past Surgical History: Heart Catheterization, Orthopedic Surgery Additional Past Surgical History / Comment(s): reconstruction on bilateral biceps, left knee ACL Past Anesthesia/Blood Transfusion Reactions: Unable to Obtain, Motion Sickness Additional Past Anesthesia/Blood Transfusion Reaction / Comm: unknown family hx- adopted Past Psychological History: Anxiety Smoking Status: Never smoker Past Alcohol Use History: None Reported Additional Past Alcohol Use History / Comment(s): quit smoking 2014, smoked for > 20 yrs, Past Drug Use History: Marijuana - Past Family History Mother Family Medical History: Unable to Obtain Additional Family Medical History / Comment(s): obtained Medications and Allergies Home Medications Medication Instructions Recorded Confirmed Type Montelukast [Singulair] 10 mg PO HS 01/10/19 11/14/20 History Omeprazole 40 mg PO DAILY 01/10/19 11/14/20 History Acetaminophen [Tylenol Extra 500 mg PO Q8H PRN 11/14/20 11/14/20 History Strength] Albuterol Sulfate [Proair Hfa] 2 puff INHALATION RT-Q6H PRN 11/14/20 11/14/20 History Benralizumab [Fasenra] 30 mg SQ Q56D 11/14/20 11/14/20 History Cephalexin [Keflex] 500 mg PO TID 11/14/20 11/14/20 History Citalopram Hydrobromide [CeleXA] 20 mg PO DAILY 11/14/20 11/14/20 History Divalproex ER [Depakote ER] 500 mg PO HS 11/14/20 11/14/20 History Fexofenadine HCl [Alysha Allergy] 180 mg PO DAILY 11/14/20 11/14/20 History Fluticasone Nasal [place] [Flonase 1 spray EA NOSTRIL DAILY PRN 11/14/20 11/14/20 History Nasal [place]] Fluticasone Propionate [Flovent 2 puff INHALATION RT-BID 11/14/20 11/14/20 History Hfa 220 mcg] Ipratropium [place] [Ipratropium 1 spray EA NOSTRIL DAILY 11/14/20 11/14/20 History [place] 0.03%] Ketorolac [Toradol] 10 mg PO BID PRN 11/14/20 11/14/20 History QUEtiapine FUMARATE [SEROquel XR] 50 mg PO DAILY 11/14/20 11/14/20 History QUEtiapine FUMARATE [SEROquel XR] 400 mg PO HS 11/14/20 11/14/20 History diphenhydrAMINE HCL [Benadryl] 50 mg PO HS 11/14/20 11/14/20 History Allergies Allergy/AdvReac Type Severity Reaction Status Date / Time banana [Banana] Allergy Anaphylaxis Verified 11/14/20 17:12 ibuprofen Allergy Unknown Verified 11/14/20 17:12 iodine Allergy Rash/Hives Verified 11/14/20 17:12 walnut Allergy shallow Verified 11/14/20 17:12 breathing and itching throat STEROID AdvReac swelling,an Uncoded 11/14/20 17:12 michael,itching ,nausea Surgical - Exam Vital Signs Temp Pulse Resp BP Pulse Ox 98.5 F 78 19 178/106 97 11/14/20 15:21 11/14/20 15:21 11/14/20 15:21 11/14/20 15:21 11/14/20 15:21 - General well developed, well nourished, no distress - Eyes PERRL - ENT normal pinna - Respiratory normal expansion - Cardiovascular Rhythm: regular - Integumentary Patient has a 2 cm lymph node in the left proximal arm meal aspect which has decreased erythema compared to yesterday. He is less tender over there. Results - Labs 11/14/20 16:17 11/14/20 16:17 Abnormal Lab Results - Last 24 Hours (Table) 11/14/20 11/14/20 Range/Units 18:47 18:47 ESR 21 H (0-15) mm/hr C-Reactive Protein 2.5 H (<1.0) mg/dL Diabetes panel 11/14/20 Range/Units 16:17 Sodium 140 (137-145) mmol/L Potassium 4.6 (3.5-5.1) mmol/L Chloride 105 (98-107) mmol/L Carbon Dioxide 26 (22-30) mmol/L BUN 12 (9-20) mg/dL Creatinine 1.02 (0.66-1.25) mg/dL Glucose 93 (74-99) mg/dL Calcium 9.3 (8.4-10.2) mg/dL AST 31 (17-59) U/L ALT 25 (4-49) U/L Alkaline Phosphatase 101 (38-126) U/L Total Protein 7.9 (6.3-8.2) g/dL Albumin 4.2 (3.5-5.0) g/dL Calcium panel 11/14/20 Range/Units 16:17 Calcium 9.3 (8.4-10.2) mg/dL Albumin 4.2 (3.5-5.0) g/dL Pituitary panel 11/14/20 Range/Units 16:17 Sodium 140 (137-145) mmol/L Potassium 4.6 (3.5-5.1) mmol/L Chloride 105 (98-107) mmol/L Carbon Dioxide 26 (22-30) mmol/L BUN 12 (9-20) mg/dL Creatinine 1.02 (0.66-1.25) mg/dL Glucose 93 (74-99) mg/dL Calcium 9.3 (8.4-10.2) mg/dL Adrenal panel 11/14/20 Range/Units 16:17 Sodium 140 (137-145) mmol/L Potassium 4.6 (3.5-5.1) mmol/L Chloride 105 (98-107) mmol/L Carbon Dioxide 26 (22-30) mmol/L BUN 12 (9-20) mg/dL Creatinine 1.02 (0.66-1.25) mg/dL Glucose 93 (74-99) mg/dL Calcium 9.3 (8.4-10.2) mg/dL Total Bilirubin 0.4 (0.2-1.3) mg/dL AST 31 (17-59) U/L ALT 25 (4-49) U/L Alkaline Phosphatase 101 (38-126) U/L Total Protein 7.9 (6.3-8.2) g/dL Albumin 4.2 (3.5-5.0) g/dL Assessment and Plan Assessment: Improving lymphadenopathy. Unsure of infectious source. Patient received IV antibiotics
[2020-11-15] MEDS: SULFAMETHOX-TMP 800-160MG 1 EACH TAB PO SCH (20:29)
--- NOTE | 2020-11-15 20:47 | PN ---
PROGRESS NOTE DATE OF SERVICE: 11/15/2020 This 39-year-old gentleman who was admitted with pain and swelling of the left forearm is being closely monitored. CT scan has been requested by Dr. Pham. Surgery is following the patient. No chest pain. No palpitations. No fever. The patient is on empiric antibiotics. PHYSICAL EXAMINATION: Alert and oriented x3. Pulse 81, blood pressure 142/93, respirations 16, temperature 98 degrees, pulse ox 94% on room air. HEENT: Conjunctivae normal. NECK: No jugular venous distention. CARDIOVASCULAR: S1, S2 muffled. RESPIRATION: Breath sounds diminished at the bases. No rhonchi. No crackles. ABDOMEN: Soft. NERVOUS SYSTEM: No focal deficit. EXAMINATION OF THE LEFT FOREARM: Lymph nodes are present in the axilla; also tender. ASSESSMENT: 1. Left left axillary lymphadenopathy with swelling. Rule out abscess or cat scratch disease. 2. History of gastroesophageal reflux disease. 3. Rule out lymphadenopathy. 4. Hypertension. 5. History of vertigo. 6. History of migraine. 7. History of sinus infection. 8. History of abnormal EKG. 9. History of cardiac catheterization. 10.History of reconstruction of bilateral bicipital tendons which were repaired. 11.Left knee ACL history. 12.History of anxiety. 13.Obesity with body mass index of 31.9. 14.Possibly immunosuppressed. 15.FULL CODE. RECOMMENDATIONS AND DISCUSSION: I recommend to continue current medications, continue with symptomatic treatment. I recommend continue the empiric antibiotics. Discussed with Dr. Pham. CT scan. Prognosis guarded. Further recommendations to follow. MMODL / IJN: [id number] / BOB
--- NOTE | 2020-11-15 21:47 | CT ---
EXAMINATION TYPE: CT upper extremity LT wo con DATE OF EXAM: 11/15/2020 COMPARISON: Ultrasound dated 11/14/2020 HISTORY: medial swelling and redness, central to elbow CT DLP: 150.4 mGycm Automated exposure control for dose reduction was used. Helical imaging through the left elbow region FINDINGS: Spherical area is present in the anterior aspect of the proximal left upper extremity correlated with the ultrasound findings with some inflammatory change within the surrounding fat. Area measures appr oximately 2 cm in diameter. There is some subcutaneous edema present. Old surgical changes are presen t at the level of the radial styloid, there is a metallic clip present as well as areas of probable h eterotopic bone or dystrophic calcification. IMPRESSION: INDETERMINATE SOFT TISSUE ABNORMALITY IS PRESENT. CORRELATE FOR ASSOCIATED CELLULITIS, FINDINGS COULD POSSIBLY REPRESENT ADENOPATHY.
--- NOTE | 2020-11-16 00:03 | P.CONS ---
History of Present Illness - Reason for Consult Consult date: 11/15/20 lymphadenopathy ?TB Requesting physician: Bon Funk - Chief Complaint Left upper arm swelling x 1 week - History of Present Illness History of present illness : Patient is a 39-year-old male presenting to the hospital yesterday afternoon for evaluation of swelling in the left arm patient apparently was seen by surgery in the outpatient setting and has been tr eated with oral Keflex without any improvement patient noticed to have bleeding worsening swelling to the left upper arm and some swelling to the axillary area patient denies having history of any trauma and not sure exactly how it started did have more of a diffuse swelling and redness elevated mild aching pain would refrain had no radiation patient denies having any fever or any chills patient o n presentation to the hospital was afebrile and no fever subsequently patient did have a normal white count with no left shift kidney function has been normal baker PCR was negative patient did have ultrasound of the upper extremity which did show some swelling to the left upper arm and axilla lymphadenopathy patient did receive a dose of Unasyn in the ER subsequently has been admitted to [facility] infectious disease was consulted for further management of antibiotic therapy patient to have acute and and do occasionally get scratches from them currently do not have any open wound Review of system: CONSTITUTIONAL: Denies fever or chills EYES: No complaint. ENT: No complaint. RESPIRATORY: No complaint. CARDIOVASCULAR: No complaint. GENITOURINARY: No complaint. GASTROINTESTINAL: No complaint. MUSCULOSKELETAL: As per history of present illness. INTEGUMENTARY: As per history of present illness. PSYCHOLOGIC: No complaint. ENDOCRINE: No complaint. NEUROLOGIC: No complaint. Past medical history : Reviewed, documented below Past surgical history : Reviewed, documented below Social history: Reviewed, documented below Medications: Reviewed, as documented below EXAMINATION: Vital sigans= Reviewed and documented below GENERAL DESCRIPTION: Middle-aged male lying in bed, no distress. No tachypnea or accessory muscle of respiration use. HEENT: Shows Pallor , no scleral icterus. Oral mucous membrane is dry. NECK: Trachea central, no thyromegaly. LUNGS: Unlabored breathing. Clear to auscultation anteriorly. No wheeze or crackle. HEART: S1, S2, regular rate and rhythm. ABDOMEN: Soft, no tenderness , guarding or rigidity EXTREMITIES: Left upper arm mostly on the medial side did have a swelling with no significant redness tenderness or drainage SKIN: No rash, no masses palpable. NEUROLOGICAL: The patient is awake, alert, oriented x3, mood and affect normal. LABS AND RADIOLOGY: Reviewed results see below Assessment : 1-Patient with left upper extremity swelling about the elbow area and this patient did have evidence of axillary lymphadenopathy with a question of possible cat scratch disease versus abscess and cellulitis 2-patient is on Celexa but will currently give the use of Zithromax Plan: 1-we will obtain a CT of the left upper extremity to rule out any abscess that may need to be drained 2-start the patient on cefazolin 2 g every 8 hours and Bactrim DS 1 twice a day Plan of care was discussed with admitting physician We will follow on clinical condition and cultures to further adjust medication if needed Thank you for this consultation we will follow the patient along with you Past Medical History Past Medical History: GERD/Reflux, Hypertension Additional Past Medical History / Comment(s): vertigo, migraines, current sinus infection and on rx, had abnormal EEG, occ irregular heat beat, irregular bowel movements, abdominal pain and cramping, History of Any Multi-Drug Resistant Organisms: None Reported Past Surgical History: Heart Catheterization, Orthopedic Surgery Additional Past Surgical History / Comment(s): reconstruction on bilateral biceps, left knee ACL Past Anesthesia/Blood Transfusion Reactions: Unable to Obtain, Motion Sickness Additional Past Anesthesia/Blood Transfusion Reaction / Comm: unknown family hx- adopted Past Psychological History: Anxiety Smoking Status: Never smoker Past Alcohol Use History: None Reported Additional Past Alcohol Use History / Comment(s): quit smoking 2014, smoked for > 20 yrs, Past Drug Use History: Marijuana - Past Family History Mother Family Medical History: Unable to Obtain Additional Family Medical History / Comment(s): obtained Medications and Allergies Home Medications Medication Instructions Recorded Confirmed Type Montelukast [Singulair] 10 mg PO HS 01/10/19 11/14/20 History Omeprazole 40 mg PO DAILY 01/10/19 11/14/20 History Acetaminophen [Tylenol Extra 500 mg PO Q8H PRN 11/14/20 11/14/20 History Strength] Albuterol Sulfate [Proair Hfa] 2 puff INHALATION RT-Q6H PRN 11/14/20 11/14/20 History Benralizumab [Fasenra] 30 mg SQ Q56D 11/14/20 11/14/20 History Cephalexin [Keflex] 500 mg PO TID 11/14/20 11/14/20 History Citalopram Hydrobromide [CeleXA] 20 mg PO DAILY 11/14/20 11/14/20 History Divalproex ER [Depakote ER] 500 mg PO HS 11/14/20 11/14/20 History Fexofenadine HCl [Alysha Allergy] 180 mg PO DAILY 11/14/20 11/14/20 History Fluticasone Nasal [place] [Flonase 1 spray EA NOSTRIL DAILY PRN 11/14/20 11/14/20 History Nasal [place]] Fluticasone Propionate [Flovent 2 puff INHALATION RT-BID 11/14/20 11/14/20 History Hfa 220 mcg] Ipratropium [place] [Ipratropium 1 spray EA NOSTRIL DAILY 11/14/20 11/14/20 History [place] 0.03%] Ketorolac [Toradol] 10 mg PO BID PRN 11/14/20 11/14/20 History QUEtiapine FUMARATE [SEROquel XR] 50 mg PO DAILY 11/14/20 11/14/20 History QUEtiapine FUMARATE [SEROquel XR] 400 mg PO HS 11/14/20 11/14/20 History diphenhydrAMINE HCL [Benadryl] 50 mg PO HS 11/14/20 11/14/20 History Allergies Allergy/AdvReac Type Severity Reaction Status Date / Time banana [Banana] Allergy Anaphylaxis Verified 11/14/20 17:12 ibuprofen Allergy Unknown Verified 11/14/20 17:12 iodine Allergy Rash/Hives Verified 11/14/20 17:12 walnut Allergy shallow Verified 11/14/20 17:12 breathing and itching throat apple AdvReac Diarrhea Verified 11/15/20 17:27 egg AdvReac Diarrhea Verified 11/15/20 17:27 peanut [Peanut Butter] AdvReac Diarrhea Verified 11/15/20 17:27 Pork/Porcine Containing AdvReac Diarrhea Verified 11/15/20 17:27 Products [Pork] STEROID AdvReac swelling,an Uncoded 11/14/20 17:12 michael,itching ,nausea Physical Exam Vitals: Vital Signs Temp Pulse Pulse Pulse Resp BP BP 11/15/20 14:00 98 F 81 16 142/93 11/15/20 07:00 98.2 F 75 16 147/75 11/15/20 02:17 98.5 F 73 17 148/100 11/15/20 01:34 98.5 F 73 17 154/106 11/15/20 00:31 73 17 11/14/20 22:46 72 18 137/88 Pulse Ox 11/15/20 14:00 95 11/15/20 07:00 92 L 11/15/20 02:17 97 11/15/20 01:34 97 11/15/20 00:31 11/14/20 22:46 95 Intake and Output 11/15/20 11/15/20 11/15/20 06:59 14:59 22:59 Intake Total 240 Output Total 300 Balance -60 Intake: Oral 240 Output: Urine 300 Other: Voiding Method Toilet # Voids 1 Weight 95.254 kg Results CBC & Chem 7: 11/14/20 16:17 11/14/20 16:17 Labs: Abnormal Lab Results - Last 24 Hours (Table) 11/14/20 11/14/20 Range/Units 18:47 18:47 ESR 21 H (0-15) mm/hr C-Reactive Protein 2.5 H (<1.0) mg/dL
[2020-11-16] MEDS: FLUTICASONE 110 MCG INHALER INHALATION SCH (08:00)
[2020-11-16 08:05] VITALS: RESP 18
[2020-11-16] MEDS: SULFAMETHOX-TMP 800-160MG 1 EACH TAB PO SCH (08:26)
[2020-11-16] MEDS: LORATADINE 10 MG TAB PO SCH (08:26)
[2020-11-16] MEDS: CITALOPRAM HYDROBROMIDE 20 MG TAB PO SCH (08:26)
[2020-11-16] MEDS: PANTOPRAZOLE 40 MG TABLET PO SCH (08:27)
[2020-11-16] MEDS: QUEtiapine 50 MG TAB PO SCH (08:27)
--- NOTE | 2020-11-16 10:27 | P.PN ---
Subjective Progress Note Date: 11/16/20 Principal diagnosis: Lymphadenitis Patient says he is doing better. No significant redness in the arm at this time. Pain is much improved. Had CAT scan last night. Objective - Vital Signs Vital signs: Vital Signs Temp 97.7 F 11/16/20 07:00 Pulse 75 11/16/20 07:00 Resp 18 11/16/20 07:00 BP 134/85 11/16/20 07:00 Pulse Ox 94 L 11/16/20 07:00 Intake & Output 11/15/20 11/16/20 11/16/20 18:59 06:59 18:59 Intake Total 50 Balance 50 Intake: Intake, IV Titration 50 Amount ceFAZolin 2 gm In Sodium 50 Chloride 0.9% 50 ml @ 100 mls/hr IVPB Q8HR [facility] Rx# :[id number] Other: # Voids 1 - Exam Left upper extremity with 2 cm mass medial brachial region, no appreciable erythema, minimal tenderness - Labs CBC & Chem 7: 11/14/20 16:17 11/14/20 16:17 Labs: Microbiology - Last 24 Hours (Table) 11/15/20 02:08 Blood Culture - Preliminary Blood No Growth after 24 hours 11/14/20 16:17 Blood Culture - Preliminary Blood No Growth after 24 hours Assessment and Plan (1) Lymphadenitis Narrative/Plan: 39-year-old male with lymphadenitis left brachial region. Doing well at this time. Continue anabiotic. Home per primary service. Current Visit: Yes Status: Acute Code(s): I88.9 - NONSPECIFIC LYMPHADENITIS, UNSPECIFIED SNOMED Code(s): 11863632
[2020-11-16 14:20] VITALS: BP 153/96; PULSE 94; TEMP 98.5
--- NOTE | 2020-11-16 15:52 | PN ---
PROGRESS NOTE DATE OF SERVICE: 11/16/2020 REASON FOR FOLLOWUP: Left upper extremity likely cat bite with cellulitis with lymphadenitis. INTERVAL HISTORY: The patient is afebrile. The patient is feeling better. The patient did mention the swelling to the left middle upper arm has decreased. No pain. No chest pain, shortness of breath or cough. No abdominal pain or diarrhea. PHYSICAL EXAMINATION: Blood pressure 134/85, pulse of 75, temperature 97.7. He is 94% on room air. General description is a middle-aged male up in the bed in no distress. RESPIRATORY SYSTEM: Unlabored breathing. Clear to auscultation anteriorly. HEART: S1, S2. Regular rate and rhythm. ABDOMEN: Soft. No tenderness. Left median arm swelling and induration have decreased. No drainage. DIAGNOSTIC IMPRESSION AND PLAN: Patient with left upper extremity medial upper arm area of swelling and concerning for a cat scratch disease in this patient who clinically responded to the Bactrim DS. He will have a 10-day course of oral Bactrim DS and follow up if no improvement. Questions and concerns were answered. MMODL / IJN: [id number] /
--- NOTE | 2020-11-16 17:46 | DS ---
DISCHARGE SUMMARY DATE OF SERVICE: 11/16/2020 FINAL DIAGNOSES: 1. Left epitrochlear axillary lymphadenopathy possibly with swelling, rule out abscess or cat scratch disease. 2. History of gastroesophageal reflux disease. 3. History of hypertension. 4. History of vertigo. 5. History of migraine. 6. History of sinus infection. 7. History of abnormal EKG. 8. History of cardiac catheterization. 9. History of reconstruction with bilateral bicipital tendon system repair. 10.Left knee ACL. 11.History of anxiety. 12.Obesity with body mass index of 31.9. 13.Possible immunosuppressed. 14.FULL CODE. DISCHARGE DISPOSITION: The patient discharged with guarded prognosis. Infectious Disease cleared the patient for discharge. Patient is keen on going home. HISTORY OF PRESENT ILLNESS: This 39-year-old gentleman with past medical history of multiple medical problems admitted with significant swelling above the left elbow in the lower forearm and as well as axilla. Lymphedema was suspected. Patient is started on IV antibiotics but cultures are negative and basic labs are negative also. Cat scratch disease suspected. Bartonella antibody 7 is requested. ESR is 21, CRP is 2. Seen by Dr. Londono and as well as Dr. Pham who recommended outpatient followup. On exam, vitals are stable. Cardiovascular S1, S2. Abdomen soft. Nervous system: No focal deficits. Lymphadenopathy present as mentioned. DISCHARGE ADVICE AND MEDICATIONS: 1. Diet is cardiac diet. 2. Activity limited until followup. 3. Follow up with Dr. Marshall in 2-3 days. 4. Follow up with Dr. Pham in 2 weeks. 5. Follow up with Dr. Londono as recommended for possible biopsy and culture later if the patient is not improving. DISCHARGE MEDICATIONS: 1. Alysha 180 mg p.o. daily. 2. Benadryl 50 mg q.h.s. 3. Celexa 20 mg daily. 4. Depakote ER 500 mg q.h.s. 5. Fasenra 30 mg subcu Q 56 days. 6. Fluticasone spray. 7. Flovent as before. 8. Ipratropium 1 spray as before. 9. Omeprazole, 40 mg daily. 10.Albuterol 2 puffs q.i.d. p.r.n. 11.Seroquel 100 mg q.h.s. and 50 mg p.o. daily. 12.Singulair 10 mg q.h.s. 13.Toradol as before. 14.Tylenol p.r.n. 15.Bactrim DS 1 p.o. b.i.d. Once again the patient will be discharged in stable condition with guarded prognosis. MMODL / IJN: [id number] /
== END 2020-11-16 14:50 | disposition home or self-care (01) ==
LOC: EC 15:20 → 6NMEDSUR 16:31 → 4SSUR 22:09 → INTOOBSV 11-16 13:31 → OBSVTOIN 11-16 13:31 → UNDODISOB 11-16 14:50 → UNDODISIN 11-16 14:50
PROVIDERS: ADMIT Hospitalist; ATTEND Hospitalist
DX: R59.0 Localized enlarged lymph nodes (principal); K21.9 Gastro-esophageal reflux disease without esophagitis; I10 Essential (primary) hypertension; R42 Dizziness and giddiness; G43.909 Migraine, unspecified, not intractable, without status migrainosus; F41.9 Anxiety disorder, unspecified; E66.9 Obesity, unspecified; Z68.31 Body mass index [BMI] 31.0-31.9, adult; J32.9 Chronic sinusitis, unspecified; Z20.822 Contact with and (suspected) exposure to COVID-19; Z87.891 Personal history of nicotine dependence; Z98.890 Other specified postprocedural states; Z79.899 Other long term (current) drug therapy; Z79.51 Long term (current) use of inhaled steroids; Z91.018 Allergy to other foods; Z88.8 Allergy status to other drugs, medicaments and biological substances; Z91.048 Other nonmedicinal substance allergy status; Z91.012 Allergy to eggs; Z91.010 Allergy to peanuts
CPT/HCPCS: 96366 ×2; 96365; 99284; 36415; 94640 ×2; 80053; 85652; 86611 ×2; 85025; 86140; 87040 ×2; 86780; 87635; 76882; 73200; G0378 ×4; J0690 ×2; J0295

== ENCOUNTER → 2023-01-14 | Outpatient (CLI) | payer OTHER ==
--- NOTE | 2023-01-14 14:58 | XR ---
EXAMINATION TYPE: XR chest 2V DATE OF EXAM: 01/14/2023 COMPARISON: 10/15/2018 TECHNIQUE: PA and lateral views submitted. HISTORY: Cough FINDINGS: The lungs are clear and there is no pneumothorax, pleural effusion, or focal pneumonia. Heart size normal and no overt failure. Osseous structures demonstrate hypertrophic and degenerative changes of the spine. Biapical pleural thickening. IMPRESSION: 1. No acute process.
== END | disposition home or self-care (01) ==
LOC: RADXRYALE 14:29
PROVIDERS: ATTEND Physician Assistant
DX: R05.9 Cough, unspecified (principal); R06.02 Shortness of breath
CPT/HCPCS: 71046

== ENCOUNTER → 2023-08-23 | Outpatient (CLI) | payer OTHER ==
--- NOTE | 2023-08-23 11:57 | XR ---
EXAMINATION TYPE: XR knee complete bilateral DATE OF EXAM: 08/23/2023 COMPARISON: 10/01/2021 HISTORY: 42-year-old male M25.561 PAIN IN RIGHT KNEE M25.562 PAIN IN LEFT K TECHNIQUE: 3 views each FINDINGS: There is tricompartmental degenerative spurring, greatest in the left medial and patellofem oral compartments. Also on the left are postsurgical changes of ACL graft reconstruction. Trace supra patellar joint effusion noted. Extensor mechanism appears intact on both sides. More moderate joint e ffusion noted on the right. Weightbearing view could better assess the degree of medial compartment c artilage and joint space narrowing on the right. No acute fracture, subluxation, dislocation. IMPRESSION: 1. 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 Degenerat dennis spurring here has increased from 2021. 2. Status post ACL graft reconstruction on the left. 3. Moderate knee joint effusion on the right. A weight-bearing view could better assess the degree of cartilage and joint space narrowing within the medial compartment. 4. No acute fracture or dislocation seen.
== END | disposition home or self-care (01) ==
LOC: RADXRMAIN 11:05
PROVIDERS: ATTEND Family Medicine
DX: M17.12 Unilateral primary osteoarthritis, left knee (principal); M25.461 Effusion, right knee

== ENCOUNTER → 2024-02-17 | Outpatient (CLI) | payer OTHER | LOC: CPPFTMAIN 16:41 | PROVIDERS: ATTEND Internal Medicine Critical Care Medicine | DX: J45.30 Mild persistent asthma, uncomplicated (principal); Z91.018 Allergy to other foods; Z88.6 Allergy status to analgesic agent; Z91.041 Radiographic dye allergy status; Z91.012 Allergy to eggs; Z91.010 Allergy to peanuts; Z88.8 Allergy status to other drugs, medicaments and biological substances; Z87.891 Personal history of nicotine dependence | CPT/HCPCS: 94060; 94726; 94729 ==